=== PATIENT | male | born 1995 | race Caucasian/White ===

== ENCOUNTER 2019-08-21 08:58 | Emergency (ER) | payer OTHER ==
[~2019-08-21] VITALS: Ht 167.6 cm; Wt 57.7 kg
--- NOTE | 2019-08-21 09:28 | PHYS DOC ---
Past History Past Medical History: No Pertinent History Past Surgical History: Other Additional Past Surgical Histo: eye surgery Smoking: Non-smoker Alcohol Use: None Drug Use: None Adult General Chief Complaint Chief Complaint: NAUSEA/VOMITING/DIARRHEA HPI HPI Patient is a 24-year-old male with no significant past medical history presents emergency department with a chief complaint of nausea, vomiting, diarrhea. Patient states that around 10:00 last night he began to have abdominal cramping, he then went to the bathroom and developed some diarrhea and has been vomiting ever since. Patient has been able unable to tolerate by mouth intake in that time. Patient denies any fever at home. Patient states that his abdominal pain is generalized, worse with vomiting and has remained about the same since his vomiting started. Patient states that his nausea is improving slightly but is still there. Patient reports some lightheadedness and dizziness and states he feels a little bit dehydrated. Patient denies any blood in the vomit or diarrhea. Patient denies any alcohol or recreational drug use. Reports concern might be secondary to food he ate at [employer]. Review of Systems Review of Systems Constitutional: Denies fever or chills Eyes: Denies redness or eye pain HENT: Denies nasal congestion or sore throat Respiratory: Denies cough or shortness of breath Cardiovascular: Denies chest pain or palpitations GI: Reports abdominal pain, nausea, vomiting, and diarrhea : Denies dysuria or hematuria Musculoskeletal: Denies back pain or joint pain Integument: Denies rash or skin lesions Neurologic: Denies headache, focal weakness or sensory changes Complete systems were reviewed and found to be within normal limits, except as documented in this note. Current Medications Current Medications Current Medications Medications (Trade) Dose Ordered Sig/Bel Start Time Stop Time Status Last Admin Dose Admin Famotidine (Pepcid Vial) 20 mg 1X ONCE 08/21/19 09:30 08/21/19 09:31 UNV Ketorolac Tromethamine (Toradol 15mg Vial) 15 mg 1X ONCE 08/21/19 09:30 08/21/19 09:31 UNV Ondansetron HCl (Zofran) 4 mg 1X ONCE 08/21/19 09:30 18 09:31 UNV Sodium Chloride 1,000 ml @ 1,000 mls/hr 1X ONCE 08/21/19 09:30 08/21/19 10:29 UNV Allergies Allergies Allergies Coded Allergies Type Severity Reaction Last Updated Verified No Known Drug Allergies 08/21/19 No Physical Exam Physical Exam Constitutional: Well developed, well nourished, no acute distress, non-toxic appearance HENT: Normocephalic, atraumatic, oropharynx moist Eyes: Conjunctiva normal, no discharge Neck: Normal range of motion, no tenderness, supple Cardiovascular: Heart rate normal, regular rhythm Lungs & Thorax: Bilateral breath sounds clear to auscultation, no wheezing Abdomen: Soft, mild generalized tenderness, no guarding/rebound tenderness/distention Skin: Warm, dry, no erythema, no rash Back: No tenderness, no CVA tenderness Extremities: No tenderness, ROM intact, no edema Neurologic: Alert and oriented X 3, no focal deficits noted Psychologic: Affect normal, judgement normal Current Patient Data Vital Signs Vital Signs Date Time Temp Pulse Resp B/P (MAP) Pulse Ox O2 Delivery O2 Flow Rate FiO2 08/21/19 09:00 98.1 85 18 100 Room Air EKG EKG [] Radiology/Procedures Radiology/Procedures [] Course & Med Decision Making Course & Med Decision Making Pertinent Lab studies reviewed. (See chart for details) Patient is a 24-year-old male with no significant past medical history presenting to the emergency department with nausea, vomiting, diarrhea. Patient was seen and evaluated at bedside. Physical exam was significant for mild generalized abdominal tenderness but otherwise benign. Fluids given. Labs reviewed. Abdominal pain addressed. Patient with interval improvement of symptoms. Patient stable for discharge with outpatient follow-up with PCP. Discussed findings and plan with patient and family, who acknowledge understanding and agreement. Dragon Disclaimer Dragon Disclaimer This electronic medical record was generated, in whole or in part, using a voice recognition dictation system. Departure Departure: Impression: Primary Impression: Nausea & vomiting Additional Impressions: Diarrhea Abdominal pain Disposition: 01 HOME, SELF-CARE Condition: STABLE Referrals: CATALINA MARSH (PCP) Patient Instructions: Abdominal Pain, [id number], Clear Liquid Diet, [id number], Diarrhea, [id number], Diet for Diarrhea, Adult, Nausea and Vomiting, Itiy-jj-Trjo Scripts Hyoscyamine Sulfate (LEVSIN-SL) 0.125 Mg Tab.subl 0.125 MG SL Q4-6HRS PRN for PAIN, #20 TAB Prov: ROCCO HAGAN DO 08/21/19 Ondansetron (ONDANSETRON ODT) 4 Mg Tab.rapdis 1 TAB PO PRN Q6-8HRS PRN for NAUSEA, #16 TAB Prov: ROCCO HAGAN DO 08/21/19 Famotidine (PEPCID) 20 Mg Tablet 1 TAB PO BID for gastritis, #20 TAB Prov: ROCCO HAGAN DO 08/21/19 Problem Qualifiers Primary Impression: Nausea & vomiting Vomiting type: unspecified Vomiting Intractability: non-intractable Qualified Codes: R11.2 - Nausea with vomiting, unspecified Additional Impressions: Diarrhea Diarrhea type: unspecified type Qualified Codes: R19.7 - Diarrhea, u nspecified Abdominal pain Abdominal location: generalized Qualified Codes: R10.84 - Generalized abdominal pain ROCCO HAGAN DO Aug 21, 2019 09:28
[2019-08-21] MEDS: IV NORMAL SALINE 1,000ML 1,000 ML IV ONE (09:38)
[2019-08-21] MEDS: ONDANSETRON PF 4 MG/2 ML VIAL. IVP ONE (09:39)
[2019-08-21] MEDS: KETOROLAC 15 MG/ML VIAL. IVP ONE (09:40)
[2019-08-21] MEDS: FAMOTIDINE 20 MG/2 ML VIAL IVP ONE (09:41)
[2019-08-21 09:49] LABS: BASO % 0 % (0-3); EOS % 0 % (0-3); HEMATOCRIT 46.4 % (39.0-53.0); HEMOGLOBIN 15.5 g/dL (13.0-17.5); LYMPH # 0.5 x10^3/uL (1.0-4.8); LYMPH % 4 % (24-48); MEAN CORPUSCULAR HEMOGLOBIN 30 pg (25-35); MEAN CORPUSCULAR HGB CONC 34 g/dL (31-37); MEAN CORPUSCULAR VOLUME 89 fL (79-100); MONO # 0.6 x10^3/uL (0.0-1.1); MONO % 5 % (0-9); NEUT # 10.7 x10^3uL (1.8-7.7); NEUT % 90 % (31-73); PLATELET COUNT 245 x10^3/uL (140-400); RED BLOOD COUNT 5.22 x10^6/uL (4.30-5.70); RED CELL DISTRIBUTION WIDTH 12.5 % (11.5-14.5); WHITE BLOOD COUNT 11.9 x10^3/uL (4.0-11.0)
[2019-08-21 09:58] LABS: CALCIUM 8.8 mg/dL (8.5-10.1); GFR 92.6; POTASSIUM 3.9 mmol/L (3.5-5.1)
[2019-08-21 10:04] LABS: ALBUMIN 4.2 g/dL (3.4-5.0); ALBUMIN/GLOBULIN RATIO 1.1 (1.0-1.7); TOTAL BILIRUBIN 1.1 mg/dL (0.2-1.0); TOTAL PROTEIN 7.9 g/dL (6.4-8.2)
[2019-08-21 10:53] LABS: CLARITY,URINE HAZY; COLOR,URINE YELLOW
[2019-08-21 10:54] LABS: BACTERIA,URINE 0 /HPF (0-FEW); BILIRUBIN,URINE NEG (NEG); GLUCOSE,URINE NEG (NEG); NITRITE,URINE NEG (NEG); UROBILINOGEN,URINE 0.2 mg/dL (0.2 mg/dL); WBC,URINE OCC /HPF (0-4)
[2019-08-21] MEDS ORDERED: ONDA4TAB12 PO (10:59)
[2019-08-21] MEDS ORDERED: HYOS0.1265 SL (10:59)
[2019-08-21] MEDS ORDERED: FAMO-63 PO (10:59)
[2019-08-21 11:12] VITALS: BP 105/55
== END 2019-08-21 11:11 | disposition home or self-care (01) ==
LOC: ER 08:58
DX: R11.2 Nausea with vomiting, unspecified (principal); R19.7 Diarrhea, unspecified; R10.84 Generalized abdominal pain; R42 Dizziness and giddiness
CPT/HCPCS: 36415; 80053; 81001; 83690; 83735; 85025; 96361; 96374; 96375; 99285; J1885; J2405; J3490; J7030

== ENCOUNTER 2021-09-12 05:19 | Emergency (ER) | payer OTHER ==
[~2021-09-12] VITALS: Ht 170.2 cm; Wt 60.0 kg
[~2021-09-12 05:19] MED LIST: FAMO-63 PO; HYOS0.1265 SL; ONDA4TAB12 PO
[2021-09-12 07:25] VITALS: BP 101/76
--- NOTE | 2021-09-12 07:36 | PHYS DOC ---
Past History Past Medical History: No Pertinent History Past Surgical History: Other Additional Past Surgical Histo: eye surgery; wisdom teeth removed Smoking: Non-smoker Alcohol Use: None Drug Use: None Adult General Chief Complaint Chief Complaint: MULTIPLE COMPLAINTS [facility] HPI Patient is a 26 year old male who presents with nausea and vomiting. He had onset of symptoms around 430 this morning. He was well when he went to bed last night. He ate a hamburger at for dinner. This morning, he woke up with abdominal cramping. Had onset of nausea and vomiting. He reports too numerous episodes of emesis to count. Also multiple episodes of brown watery diarrhea. No respiratory symptoms. On arrival to the ER, he complains of cramping lower extremities. He does not have history of chronic health conditions. No other family members have been ill. Review of Systems Review of Systems Constitutional: Denies fever or chills Eyes: Denies change in visual acuity, redness, or eye pain HENT: Denies nasal congestion or sore throat Respiratory: Denies cough or shortness of breath Cardiovascular: No additional information not addressed in HPI GI: As documented in HPI : Denies Musculoskeletal: Muscle cramps lower extremity Integument: Denies Neurologic: Denies headache All other systems were reviewed and found to be within normal limits, except as documented in this note. Allergies Allergies Allergies Coded Allergies Type Severity Reaction Last Updated Verified No Known Drug Allergies 08/21/19 No Physical Exam Physical Exam Constitutional: Thin, ill-appearing male in moderate distress due to current nausea and muscle cramps HENT: Normocephalic, atraumatic, mucous membranes are dry Eyes: PERRLA, EOMI, conjunctiva normal Neck: Normal range of motion Cardiovascular: mildly tachycardic. regular rate Lungs & Thorax: Bilateral breath sounds clear to auscultation Abdomen: Bowel sounds normal, soft, subjectively tender to palpate over all qu adrants but no guarding or rebound. Exam is nonperitoneal. Skin: Warm, dry, pale Back: Normal ROM Extremities: No tenderness, no cyanosis, no clubbing Neurologic: Alert and oriented X 3, normal motor function Psychologic: Affect is anxious Current Patient Data Vital Signs Vital Signs Date Time Temp Pulse Resp B/P (MAP) Pulse Ox O2 Delivery O2 Flow Rate FiO2 09/12/21 07:25 97.1 18 101/76 (84) 97 EKG EKG [] Radiology/Procedures Radiology/Procedures [] Heart Score C/O Chest Pain: No Risk Factors: Risk Factors: DM, Current or recent (<one month) smoker, HTN, HLP, family history of CAD, obesity. Risk Scores: Risk Factors: DM, Current or recent (<one month) smoker, HTN, HLP, family history of CAD, obesity. Course & Med Decision Making Course & Med Decision Making Pertinent Labs and Imaging studies reviewed. (See chart for details) 07:40: Patient is seen and examined. Appears uncomfortable. Orders placed for IV, fluids, medications for symptom relief. 09:00: Patient is reexamined. He is currently feeling improved. Continues to complain of nausea. IV fluids are complete, 1 L. He voided only about 25 mils. Will give additional Zofran and IV fluids. 10:20: Currently feeling improved. Patient is stable for discharge home. He is given Zofran. Gastroenteritis. No acute findings on his lab work-up. Return precautions discussed and all of his questions were answered prior to discharge. Dragon Disclaimer Dragon Disclaimer This electronic medical record was generated, in whole or in part, using a voice recognition dictation system. Departure Departure: Disposition: HOME / SELF CARE / HOMELESS Condition: GOOD Referrals: CATALINA MARSH (PCP) Patient Instructions: Viral Gastroenteritis Additional Instructions: You do not have COVID today. You may return to work on Monday, Sep 15. MATHEW ORTIZ DO Sep 12, 2021 07:36
[2021-09-12] MEDS ORDERED: IV NORMAL SALINE 1,000ML 1,000 ML IV ONE ×2 (07:45→09:15)
[2021-09-12] MEDS ORDERED: diphenhydrAMINE 50 MG/ML VIAL IVP ONE (08:00)
[2021-09-12] MEDS ORDERED: PROCHLORPERAZINE 10 MG/2 ML VIAL. IV ONE (08:00)
[2021-09-12 08:19] LABS: BASO % 0 % (0-3); EOS # 0.1 x10^3/uL (0.0-0.7); EOS % 0 % (0-3); HEMATOCRIT 48.5 % (39.0-53.0); HEMOGLOBIN 16.2 g/dL (13.0-17.5); LYMPH # 0.6 x10^3/uL (1.0-4.8); LYMPH % 4 % (24-48); MEAN CORPUSCULAR HEMOGLOBIN 29 pg (25-35); MEAN CORPUSCULAR HGB CONC 33 g/dL (31-37); MEAN CORPUSCULAR VOLUME 88 fL (79-100); MONO # 1.4 x10^3/uL (0.0-1.1); MONO % 9 % (0-9); NEUT # 13.8 x10^3uL (1.8-7.7); NEUT % 87 % (31-73); PLATELET COUNT 319 x10^3/uL (140-400); RED BLOOD COUNT 5.55 x10^6/uL (4.30-5.70); RED CELL DISTRIBUTION WIDTH 12.8 % (11.5-14.5)
[2021-09-12 08:36] LABS: CALCIUM 9.8 mg/dL (8.5-10.1); CREATININE 1.2 mg/dL (0.7-1.3); GFR 73.8; POTASSIUM 3.5 mmol/L (3.5-5.1)
[2021-09-12 08:41] LABS: ALBUMIN 4.8 g/dL (3.4-5.0); ALBUMIN/GLOBULIN RATIO 1.3 (1.0-1.7); TOTAL BILIRUBIN 0.6 mg/dL (0.2-1.0); TOTAL PROTEIN 8.6 g/dL (6.4-8.2)
[2021-09-12 08:42] LABS: INFLUENZA A PATIENT NEGATIVE (NEGATIVE); INFLUENZA B PATIENT NEGATIVE (NEGATIVE)
[2021-09-12] MEDS ORDERED: MORPHINE SULFATE 4 MG/ML DISP.SYRIN. IV ONE (09:15)
[2021-09-12] MEDS ORDERED: ONDANSETRON PF 4 MG/2 ML VIAL. IVP ONE (09:15)
[2021-09-12 09:49] LABS: BACTERIA,URINE 0 /HPF (0-FEW); BILIRUBIN,URINE NEG (NEG); CLARITY,URINE CLEAR; COLOR,URINE YELLOW; GLUCOSE,URINE NEG (NEG); NITRITE,URINE NEG (NEG); RBC,URINE 0 /HPF (0-2); UROBILINOGEN,URINE 0.2 mg/dL (0.2 mg/dL); WBC,URINE 0 /HPF (0-4)
[2021-09-12] MEDS ORDERED: ONDA4TAB12 PO (10:21)
[2021-09-12 11:52] LABS: % BANDS 28 % (0-9); % LYMPHS 6 % (24-48); % METAS 1 % (0-0); % MONOS 13 % (0-10); % SEGS 52 % (35-66); PLT ESTIMATE ADEQUATE (ADEQUATE)
== END 2021-09-12 10:30 | disposition home or self-care (01) ==
LOC: ER 05:27
DX: R11.2 Nausea with vomiting, unspecified (principal); R10.84 Generalized abdominal pain; R25.2 Cramp and spasm; Z20.822 Contact with and (suspected) exposure to COVID-19
CPT/HCPCS: 36415; 80053; 81001; 85007; 85025; 96361; 96374; 96375; 99284; J0780; J1200; J2270; J2405; J7030